=== PATIENT | female | born 2000 | race Hispanic/Latino ===

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

== ENCOUNTER 2023-01-14 02:03 | Emergency (ER) | payer MEDICAID ==
[~2023-01-14] VITALS: Ht 160 cm; Wt 73.9 kg
[~2023-01-14 02:03] MED LIST: DIPH1TAB PO; ONDA4TAB10 PO
[2023-01-14 02:06] VITALS: BP 141/89; PULSE 106; RESP 20
== END 2023-01-14 04:37 | disposition left against medical advice (07) ==
LOC: EDH 02:03
DX: R05.9 Cough, unspecified (principal); J02.9 Acute pharyngitis, unspecified; Z53.21 Procedure and treatment not carried out due to patient leaving prior to being seen by health care provider
CPT/HCPCS: 99281